=== PATIENT | female | born 1950 | race Caucasian/White ===

== ENCOUNTER 2017-09-21 20:51 | Emergency (ER) | payer MEDICARE ==
[~2017-09-21] VITALS: Ht 160 cm; Wt 87.5 kg
[~2017-09-21 20:51] MED LIST: CYCL-1 PO; IBUP-1985 PO; IBUP-1986 PO; adenosine 3mg/ml 2ml vial IV ONE
[2017-09-21] MEDS ORDERED: diltiazem-NS 100mg/100ml 100 ML IV SCH (21:10)
[2017-09-21 21:14] LABS: BASOPHILS % (AUTO) 0.3 % (0-1); EOSINOPHILS # (AUTO) 0.3 X10'3 (0-0.9); EOSINOPHILS % (AUTO) 2.2 % (0-6); HEMATOCRIT 45.4 % (35.0-45.0); HEMOGLOBIN 15.3 g/dl (12.0-16.0); LYMPHOCYTES # (AUTO) 4.2 X10'3 (1.1-4.8); LYMPHOCYTES % (AUTO) 35.5 % (21-51); MEAN CORPUSCULAR HEMOGLOBIN 29.9 PG (27.0-31.0); MEAN CORPUSCULAR HGB CONC 33.6 % (33.0-36.5); MEAN CORPUSCULAR VOLUME 89.2 FL (78-98); MEAN PLATELET VOLUME 8.7 FL (7.4-10.4); MONOCYTES % (AUTO) 8.8 % (2-12); NEUTROPHILS # (AUTO) 6.3 X10'3 (1.8-7.7); NEUTROPHILS % (AUTO) 53.2 % (42-75); PLATELET COUNT 271 X10'3 (140-440); RED CELL DISTRIBUTION WIDTH 13.9 % (11.5-14.5); WHITE BLOOD COUNT 11.9 X10'3 (4.5-11.0)
[2017-09-21 21:23] LABS: PARTIAL THROMBOPLASTIN TIME 26 SECONDS (22-32); PROTHROMBIN TIME 10.5 SECONDS (9.0-12.0)
[2017-09-21 21:27] LABS: ANION GAP 13 (8-16); BLOOD UREA NITROGEN 22 MG/DL (7-18); BUN/CREATININE RATIO 21.6 (6.6-38.0); CHLORIDE 105 MMOL/L (99-107); CREATININE 1.02 MG/DL (0.40-0.90); GLUCOSE 143 MG/DL (70-104); POTASSIUM 3.8 MMOL/L (3.5-5.1); SODIUM 144 MMOL/L (135-145); TOTAL CARBON DIOXIDE 25.8 MMOL/L (24-32)
[2017-09-21 21:28] LABS: ALANINE AMINOTRANSFERASE 67 U/L (12-78); ALBUMIN 3.9 G/DL (3.4-5.0); ALBUMIN/GLOBULIN RATIO 1.2 (1.1-1.5); ALKALINE PHOSPHATASE 82 IU/L (46-116); ASPARTATE AMINO TRANSFERASE 61 U/L (10-37); BILIRUBIN,TOTAL 0.4 MG/DL (0.1-1.0); CALCIUM 9.2 MG/DL (8.5-10.1); TOTAL PROTEIN 7.2 G/DL (6.4-8.2); eGFR 54 ML/MIN
[2017-09-21] MEDS ORDERED: adenosine 3mg/ml 2ml vial IV ONE ×2 (21:30)
[2017-09-21] MEDS ORDERED: metoprolol succinate 25mg (24-HOUR) SR. Tablet PO STA (22:49)
[2017-09-21] MEDS ORDERED: METO-395 PO (22:52)
[2017-09-21 23:19] VITALS: BP 115/77
== END 2017-09-21 23:35 | disposition home or self-care (01) ==
LOC: ER 20:52
DX: I47.1 Supraventricular tachycardia (principal); G89.29 Other chronic pain; Z79.899 Other long term (current) drug therapy
CPT/HCPCS: 36415; 71045; 80053; 83880; 84484; 85025; 85610; 85730; 93005; 99291; J0153; J7030; 92960; 99152; 99153; 99285

== ENCOUNTER 2017-10-18 11:16 | Inpatient (IN) | payer MEDICARE ==
[~2017-10-18] VITALS: Ht 160 cm; Wt 93.5 kg
[~2017-10-18 11:16] MED LIST changes: +METO-395 PO; -adenosine 3mg/ml 2ml vial IV ONE
[2017-10-18] MEDS: amiodarone/D5 360MG/200ML BAG 200 ML IV SCH ×2 (12:59→19:56)
[2017-10-18] MEDS ORDERED: magnesium 1gm/100ml D5W IVPB 50 ML IV PRN (13:00)
[2017-10-18] MEDS ORDERED: potassium Cl 40MEQ/NS 500ml 500 ML IV PRN ×2 (13:00)
[2017-10-18] MEDS ORDERED: potassium Cl 20 mEq SR tablet PO PRN ×2 (13:00)
[2017-10-18] MEDS ORDERED: MESSAGE TO NURSING PO ONE ×4 (13:00)
[2017-10-18] MEDS ORDERED: dextrose 50%-water 50ml dispensing syringe IV PRN (13:00)
[2017-10-18] MEDS ORDERED: magnesium Cl slow-release 64mg tablet PO PRN (13:00)
[2017-10-18] MEDS ORDERED: magnesium 4gm in 100ml NS 100 ML IV PRN (13:00)
[2017-10-18] MEDS ORDERED: CITA-279 PO (13:25)
[2017-10-18] MEDS ORDERED: FURO-150 PO (13:26)
[2017-10-18] MEDS ORDERED: MULT1CAP44 PO (13:28)
[2017-10-18] MEDS ORDERED: POTA-82 PO (13:28)
[2017-10-18] MEDS ORDERED: ALPRAZolam 0.5mg tablet PO PRN (13:30)
[2017-10-18] MEDS ORDERED: LORazepam 0.5 MG tablet PO PRN (13:30)
[2017-10-18] MEDS ORDERED: acetaminophen 325mg tablet PO PRN ×2 (13:30)
[2017-10-18] MEDS ORDERED: nitroGLYCERIN 0.4mg SUBLingual tab SL PRN (13:30)
[2017-10-18] MEDS ORDERED: HYDROcodone/acetaminophen 5mg/325mg tablet PO PRN (13:30)
[2017-10-18] MEDS ORDERED: ondansetron/PF 4mg/2ml inj IV PRN (13:30)
[2017-10-18] MEDS ORDERED: HYDROcodone/acetaminophen 10/325mg tab PO PRN (13:30)
[2017-10-18] MEDS ORDERED: mag hydrox/Alum hydrox/simeth 30ml oral suspension PO PRN (13:30)
[2017-10-18] MEDS ORDERED: HYDROmorphone 1 mg/ml syringe IV PRN (13:30)
[2017-10-18 14:40] VITALS: BP 140/72
[2017-10-18 14:42] LABS: HEMOGLOBIN 12.9 g/dl (12.0-16.0); MEAN CORPUSCULAR HEMOGLOBIN 30.3 PG (27.0-31.0); MEAN CORPUSCULAR HGB CONC 33.8 % (33.0-36.5); MEAN CORPUSCULAR VOLUME 89.7 FL (78-98); MEAN PLATELET VOLUME 9.1 FL (7.4-10.4); PLATELET COUNT 179 X10'3 (140-440); RED BLOOD COUNT 4.24 X10'6 (4.20-5.60); RED CELL DISTRIBUTION WIDTH 13.2 % (11.5-14.5); WHITE BLOOD COUNT 7.9 X10'3 (4.5-11.0)
[2017-10-18 14:51] LABS: ANION GAP 7 (8-16); BLOOD UREA NITROGEN 13 MG/DL (7-18); BUN/CREATININE RATIO 14.1 (6.6-38.0); CALCIUM 8.8 MG/DL (8.5-10.1); CHLORIDE 104 MMOL/L (99-107); CREATININE 0.92 MG/DL (0.40-0.90); GLUCOSE 150 MG/DL (70-104); HEMOGLOBIN A1C 5.8 % (4.5-6.2); POTASSIUM 4.3 MMOL/L (3.5-5.1); SODIUM 140 MMOL/L (135-145); TOTAL CARBON DIOXIDE 29.5 MMOL/L (24-32); eGFR 61 ML/MIN
[2017-10-18 14:52] LABS: PARTIAL THROMBOPLASTIN TIME 28 SECONDS (22-32); PROTHROMBIN TIME 10.5 SECONDS (9.0-12.0)
[2017-10-18 15:00] VITALS: BP 154/74
[2017-10-18 17:56] LABS: ABG BASE EXCESS 0.4 mmol/L (-2.0-3.0); ABG HCO3 22.3 mmol/L (22.0-26.0); ABG OXYGEN SATURATION 97.5 % (95-98); ABG PCO2 (T) 28.1 mmHg (32.0-45.0); ABG PH (T) 7.517 (7.350-7.450); ALLEN'S TEST Positive; FCOHb 0.4 % (0.5-1.5); FO2Hb 97.1 % (94-100); TOTAL HEMOGLOBIN 12.7 G/dl (12.0-16.0)
[2017-10-18 19:00] VITALS: BP 147/80
[2017-10-18] MEDS: famotidine 20mg tablet PO SCH (19:54)
[2017-10-18] MEDS: docusate sod 100mg capsule PO SCH (19:54)
[2017-10-18] MEDS: mupirocin 2% nasal ointment 1gm UD NS SCH (20:00)
[2017-10-18] MEDS ORDERED: ringers solution, lacted 1,000 ML IV ONE (20:46)
[2017-10-18] MEDS ORDERED: polyethylene glycol 3350 17gm powd pack PO SCH (21:00)
[2017-10-18] MEDS: piperacillin/tazo 3.375gm/50ml 50 ML IV SCH (22:54)
[2017-10-18 23:00] VITALS: BP 155/64
[2017-10-18] MEDS: vancomycin/NS 1 GM ADD-VANTAGE 250 ML IV SCH (23:52)
[2017-10-19] VITALS (14 sets, daily range): BP systolic 112–142; BP diastolic 45–71
[2017-10-19] MEDS: amiodarone/D5 360MG/200ML BAG 200 ML IV SCH ×4 (01:07→17:12)
[2017-10-19] MEDS ORDERED: cefazolin/dext.iso 2gm/50ml 50 ML IV ONE (05:00)
[2017-10-19] MEDS: insulin regular, human inj. 100 UNITS in normal saline 100ml IV soln 100 ML IV SCH ×6 (05:00→21:08)
[2017-10-19] MEDS ORDERED: vancomycin/NS 1 GM ADD-VANTAGE 250 ML IV ONE (05:00)
[2017-10-19] MEDS ORDERED: famotidine 20mg tablet PO ONE (06:00)
[2017-10-19] MEDS ORDERED: LORazepam 2 mg/ml vial IV ONE (06:00)
[2017-10-19 06:01] LABS: BASOPHILS # (AUTO) 0.1 X10'3 (0-0.2); EOSINOPHILS # (AUTO) 0.2 X10'3 (0-0.9); EOSINOPHILS % (AUTO) 3.5 % (0-6); HEMATOCRIT 35.9 % (35.0-45.0); HEMOGLOBIN 12.1 g/dl (12.0-16.0); LYMPHOCYTES # (AUTO) 1.2 X10'3 (1.1-4.8); LYMPHOCYTES % (AUTO) 21.3 % (21-51); MEAN CORPUSCULAR HEMOGLOBIN 30.1 PG (27.0-31.0); MEAN CORPUSCULAR HGB CONC 33.8 % (33.0-36.5); MEAN CORPUSCULAR VOLUME 89.2 FL (78-98); MEAN PLATELET VOLUME 9.3 FL (7.4-10.4); MONOCYTES # (AUTO) 0.6 X10'3 (0-0.9); MONOCYTES % (AUTO) 11.2 % (2-12); NEUTROPHILS # (AUTO) 3.6 X10'3 (1.8-7.7); PLATELET COUNT 181 X10'3 (140-440); RED BLOOD COUNT 4.03 X10'6 (4.20-5.60); RED CELL DISTRIBUTION WIDTH 13.8 % (11.5-14.5); WHITE BLOOD COUNT 5.7 X10'3 (4.5-11.0)
[2017-10-19 06:50] LABS: ALANINE AMINOTRANSFERASE 80 U/L (12-78); ALBUMIN 2.8 G/DL (3.4-5.0); ALBUMIN/GLOBULIN RATIO 0.9 (1.1-1.5); ALKALINE PHOSPHATASE 50 IU/L (46-116); ANION GAP 11 (8-16); ASPARTATE AMINO TRANSFERASE 47 U/L (10-37); BILIRUBIN,TOTAL 0.5 MG/DL (0.1-1.0); BLOOD UREA NITROGEN 10 MG/DL (7-18); BUN/CREATININE RATIO 11.2 (6.6-38.0); CALCIUM 8.3 MG/DL (8.5-10.1); CHLORIDE 106 MMOL/L (99-107); CREATININE 0.89 MG/DL (0.40-0.90); GLUCOSE 104 MG/DL (70-104); MAGNESIUM 1.9 MG/DL (1.5-2.4); SODIUM 142 MMOL/L (135-145); TOTAL CARBON DIOXIDE 25.5 MMOL/L (24-32); eGFR 64 ML/MIN
[2017-10-19 06:54] LABS: POTASSIUM 3.7 MMOL/L (3.5-5.1)
[2017-10-19] MEDS: piperacillin/tazo 3.375gm/50ml 50 ML IV SCH ×2 (08:00→09:22)
[2017-10-19] MEDS ORDERED: phenylephrine 10mg/ml inj. ONE (08:00)
[2017-10-19] MEDS ORDERED: heparin 10,000 units/1 ML INJ ONE (08:00)
[2017-10-19] MEDS ORDERED: calcium chloride 100 MG/1 ML inj IV ONE (08:00)
[2017-10-19] MEDS: vancomycin/NS 1 GM ADD-VANTAGE 250 ML IV SCH ×2 (08:00→20:11)
[2017-10-19] MEDS ORDERED: K and/or MAG REPLACEMENT MC SCH (08:00)
[2017-10-19] MEDS ORDERED: lisinopril 5mg tablet PO SCH (08:00)
[2017-10-19] MEDS ORDERED: sodium bicarbonate (8.4%) 1 mEq/ml syringe ONE (08:00)
[2017-10-19] MEDS ORDERED: heparin 1,000 units/ml 10ml inj ONE (08:00)
[2017-10-19] MEDS ORDERED: LIDOcaine 2% (20 mg/ml) 5ml cardiac syringe ONE (08:00)
[2017-10-19] MEDS ORDERED: lactobacillus rhamnosus 10,000 MMU CELLS/CAPSULE PO SCH (08:00)
[2017-10-19] MEDS ORDERED: albumin (human) 25% 100 ML IV solution IV ONE (08:00)
[2017-10-19] MEDS ORDERED: MAGNESIUM SULFATE 4 MEQ/ML (1gm/2ml) injection ONE (08:00)
[2017-10-19] MEDS ORDERED: aspirin 81mg tab.chew PO SCH (08:30)
[2017-10-19] MEDS: mupirocin 2% nasal ointment 1gm UD NS SCH (08:39)
[2017-10-19] MEDS ORDERED: albuterol 2.5 MG/3 ML nebule NEB ONE (08:40)
[2017-10-19] MEDS: CITALOpram 10mg tablet PO SCH (08:40)
[2017-10-19] MEDS: multivitamins, therapeutics tablet PO SCH (08:40)
[2017-10-19] MEDS: docusate sod 100mg capsule PO SCH ×2 (08:40→20:00)
[2017-10-19] MEDS ORDERED: albuterol 2.5 MG/3 ML nebule ONE (08:43)
[2017-10-19] MEDS ORDERED: vancomycin inj 1,250 MG in normal saline 250ml IV soln 250 ML IV SCH (09:00)
[2017-10-19] MEDS ORDERED: insulin Lispro (HumaLOG) vial - multi-dose SQ SCH (09:00)
[2017-10-19] MEDS ORDERED: MESSAGE TO NURSING PO ONE (10:00)
[2017-10-19] MEDS ORDERED: MAGN400C PO (10:16)
[2017-10-19] MEDS: famotidine 20mg tablet PO SCH (11:56)
[2017-10-19] MEDS ORDERED: INSULIN R 100 UNIT in NS 100ML (1 UNIT/1 ML) BAG IV ONE (12:11)
[2017-10-19] MEDS ORDERED: protamine sulf. 10mg/ml inj. IV ONE (12:11)
[2017-10-19] MEDS ORDERED: amiodarone in dextrose, iso-osm 150mg/100ml bag IV ONE (12:11)
[2017-10-19] MEDS ORDERED: ePHEDrine 50MG/ML INJ. ONE (12:11)
[2017-10-19] MEDS ORDERED: sevoflurane 250ml liquid IH ONE (12:11)
[2017-10-19] MEDS ORDERED: MIDAZolam 1mg/ml 10ml vial ONE (12:12)
[2017-10-19] MEDS ORDERED: SUFENTANIL CITRATE 50 MCG/ML 2ml ampule IV ONE (12:12)
[2017-10-19] MEDS ORDERED: propofol inj 20 ML IV ONE (12:14)
[2017-10-19] MEDS ORDERED: rocuronium 10mg/ml inj IV ONE ×2 (12:19)
[2017-10-19 13:26] LABS: ABG BASE EXCESS 0.2 mmol/L (-2.0-3.0); ABG HCO3 24.6 mmol/L (22.0-26.0); ABG OXYGEN SATURATION 90.4 % (95-98); ABG PH (T) 7.418 (7.350-7.450); ABG PO2 (T) 57.6 mmHg (83-108); FCOHb 0.4 % (0.5-1.5); FMetHb 0.2 % (0.3-1.12); FO2Hb 89.9 % (94-100); TOTAL HEMOGLOBIN 11.2 G/dl (12.0-16.0)
[2017-10-19 13:55] LABS: ABG HCO3 VENOUS 22.7 mmol/L; ABG PCO2 VENOUS 42.9 mmHg; ABG PO2 VENOUS 45.9 mmHg; CL (ABG) 104 mmol/L (99-107); FCOHb VENOUS 0.2 %; FHHb VENOUS 21.3 %; FMetHb VENOUS 0.3 %; FO2Hb VENOUS 78.2 %; GLUCOSE (ABG) 97 mg/dl (70-105); K (ABG) 3.7 mmol/L (3.3-5.1); NA (ABG) 121 mmol/L (135-145); TOTAL HEMOGLOBIN 11.1 G/dl (12.0-16.0)
[2017-10-19 14:20] LABS: ACT @ 1.70 U 250 SEC (193-297); ACT @ 2.84 U 336 SEC (260-420); BASELINE ACT 149 SEC (101-148); PATIENT WEIGHT 88.0k KG
[2017-10-19 14:20] LABS: ABG BASE EXCESS 1.6 mmol/L (-2.0-3.0); ABG HCO3 24.1 mmol/L (22.0-26.0); ABG OXYGEN SATURATION 99.2 % (95-98); ABG PCO2 (T) 29.9 mmHg (32.0-45.0); ABG PH (T) 7.525 (7.350-7.450); ABG PO2 (T) 374.2 mmHg (83-108); FCOHb 0.3 % (0.5-1.5); FMetHb 0.2 % (0.3-1.12); FO2Hb 98.7 % (94-100); TOTAL HEMOGLOBIN 8.5 G/dl (12.0-16.0)
[2017-10-19 14:46] LABS: ABG PCO2 32.9 mmHg (35.0-45.0); ABG PH 7.499 (7.350-7.450); CL (ABG) 107 mmol/L (99-107); FCOHb 0.3 % (0.5-1.5); FMetHb 0.4 % (0.3-1.12); FO2Hb 98.3 % (94-100); GLUCOSE (ABG) 103 mg/dl (70-105); K (ABG) 5.3 mmol/L (3.3-5.1); NA (ABG) 130 mmol/L (135-145); TOTAL HEMOGLOBIN 9.1 G/dl (12.0-16.0)
[2017-10-19 14:50] LABS: ABG PO2 72.2 mmHg (60.0-100.0); CL (ABG) 74 mmol/L (99-107); FCOHb 0.3 % (0.5-1.5); FMetHb 0.4 % (0.3-1.12); FO2Hb 72.5 % (94-100); GLUCOSE (ABG) 440 mg/dl (70-105); TOTAL HEMOGLOBIN 10.5 G/dl (12.0-16.0)
[2017-10-19 15:01] LABS: ABG PH < 6.670 (7.350-7.450)
[2017-10-19 15:02] LABS: ABG PCO2 149.7 mmHg (35.0-45.0); K (ABG) 2.8 mmol/L (3.3-5.1)
[2017-10-19 15:11] LABS: ABG BASE EXCESS 0.1 mmol/L (-2.0-3.0); ABG HCO3 23.7 mmol/L (22.0-26.0); ABG PCO2 34.1 mmHg (35.0-45.0); ABG PH 7.459 (7.350-7.450); ABG PO2 358.7 mmHg (60.0-100.0); CL (ABG) 107 mmol/L (99-107); FCOHb 0.3 % (0.5-1.5); FMetHb 0.8 % (0.3-1.12); FO2Hb 97.9 % (94-100); GLUCOSE (ABG) 101 mg/dl (70-105); IONIZED CA (ABG) 1.01 mmol/L (1.03-1.32); K (ABG) 4.6 mmol/L (3.3-5.1); NA (ABG) 128 mmol/L (135-145)
[2017-10-19 15:35] LABS: ABG BASE EXCESS 1.2 mmol/L (-2.0-3.0); ABG HCO3 25.4 mmol/L (22.0-26.0); ABG OXYGEN SATURATION 99.1 % (95-98); ABG PCO2 38.6 mmHg (35.0-45.0); ABG PH 7.436 (7.350-7.450); ABG PO2 389.7 mmHg (60.0-100.0); CL (ABG) 108 mmol/L (99-107); FCOHb 0.1 % (0.5-1.5); FMetHb 0.9 % (0.3-1.12); FO2Hb 98.1 % (94-100); GLUCOSE (ABG) 124 mg/dl (70-105); IONIZED CA (ABG) 0.99 mmol/L (1.03-1.32); K (ABG) 4.6 mmol/L (3.3-5.1); NA (ABG) 130 mmol/L (135-145); TOTAL HEMOGLOBIN 8.6 G/dl (12.0-16.0)
[2017-10-19 16:10] LABS: ABG BASE EXCESS 4.3 mmol/L (-2.0-3.0); ABG HCO3 28.3 mmol/L (22.0-26.0); ABG PCO2 39.6 mmHg (35.0-45.0); ABG PH 7.472 (7.350-7.450); ABG PO2 372.1 mmHg (60.0-100.0); CL (ABG) 105 mmol/L (99-107); FCOHb 0.2 % (0.5-1.5); FMetHb 0.9 % (0.3-1.12); FO2Hb 97.9 % (94-100); GLUCOSE (ABG) 137 mg/dl (70-105); IONIZED CA (ABG) 1.34 mmol/L (1.03-1.32); K (ABG) 4.4 mmol/L (3.3-5.1); NA (ABG) 132 mmol/L (135-145); TOTAL HEMOGLOBIN 7.9 G/dl (12.0-16.0)
[2017-10-19 16:31] LABS: ABG HCO3 VENOUS 28.1 mmol/L; ABG PCO2 VENOUS 45.3 mmHg; ABG PO2 VENOUS 35.1 mmHg; CL (ABG) 106 mmol/L (99-107); FCOHb VENOUS 0.4 %; FHHb VENOUS 31.6 %; FMetHb VENOUS 0.9 %; FO2Hb VENOUS 67.1 %; GLUCOSE (ABG) 142 mg/dl (70-105); IONIZED CA (ABG) 1.18 mmol/L (1.03-1.32); K (ABG) 4.2 mmol/L (3.3-5.1); NA (ABG) 133 mmol/L (135-145); TOTAL HEMOGLOBIN 8.7 G/dl (12.0-16.0)
[2017-10-19] MEDS ORDERED: sodium phosphate inj. 15 MMOL in dextrose 5%-water 150 ML IV PRN (17:20)
[2017-10-19] MEDS ORDERED: magnesium 4gm in 100ml NS 100 ML IV PRN (17:20)
[2017-10-19] MEDS ORDERED: Neutra Phos packet PO PRN (17:20)
[2017-10-19] MEDS ORDERED: epiNEPHrine inj 5 MG, calcium chloride inj. 1,000 MG in normal saline 250ml IV soln 250 ML IV SCH (17:20)
[2017-10-19] MEDS ORDERED: magnesium 1gm/100ml D5W IVPB 100 ML IV PRN (17:20)
[2017-10-19] MEDS ORDERED: potassium Cl 20mEq/100mL bag 100 ML IV PRN ×3 (17:20)
[2017-10-19] MEDS ORDERED: nitroGLYCERIN-Tridil 50MG/D5W 250 ML IV PRN (17:20)
[2017-10-19] MEDS ORDERED: morphine 4 MG/ML inj SYRINge IV PRN (17:20)
[2017-10-19] MEDS ORDERED: metoclopramide 5 mg/ml inj IV PRN (17:20)
[2017-10-19] MEDS ORDERED: acetaminophen 325mg tablet PO PRN (17:20)
[2017-10-19] MEDS ORDERED: insulin regular, human inj. 100 UNITS in normal saline 100ml IV soln 100 ML IV SCH ×2 (17:20)
[2017-10-19] MEDS ORDERED: dextrose 50%-water 50ml dispensing syringe IV PRN (17:20)
[2017-10-19] MEDS ORDERED: normal saline 250ml IV soln 250 ML IV PRN (17:20)
[2017-10-19] MEDS ORDERED: sodium phosphate inj. 30 MMOL in dextrose 5%-water 250 ML IV PRN (17:20)
[2017-10-19] MEDS ORDERED: niCARDipine/sod cl 20mg/200ml 200 ML IV PRN (17:20)
[2017-10-19] MEDS ORDERED: DOPamine 400mg/D5W 250ml 250 ML IV PRN (17:20)
[2017-10-19 17:56] LABS: ABG BASE EXCESS -0.3 mmol/L (-2.0-3.0); ABG HCO3 23.8 mmol/L (22.0-26.0); ABG OXYGEN SATURATION 94.5 % (95-98); ABG PCO2 (T) 36.9 mmHg (32.0-45.0); ABG PH (T) 7.427 (7.350-7.450); ABG PO2 (T) 74.5 mmHg (83-108); FCOHb 0.3 % (0.5-1.5); FMetHb 0.4 % (0.3-1.12); FO2Hb 93.8 % (94-100); MINUTE VOLUME 9 L/min; PEEP 5 cm H2O; RESPIRATORY RATE 16 b/min; RESPIRATORY RATE (OBSERVED) 16 b/min; TIDAL VOLUME 500 mL; TOTAL HEMOGLOBIN 12.3 G/dl (12.0-16.0)
[2017-10-19 18:00] LABS: BASOPHILS % (AUTO) 0.2 % (0-1); EOSINOPHILS # (AUTO) 0.2 X10'3 (0-0.9); EOSINOPHILS % (AUTO) 1.3 % (0-6); HEMATOCRIT 34.3 % (35.0-45.0); HEMOGLOBIN 11.6 g/dl (12.0-16.0); LYMPHOCYTES # (AUTO) 1.8 X10'3 (1.1-4.8); LYMPHOCYTES % (AUTO) 10.3 % (21-51); MEAN CORPUSCULAR HEMOGLOBIN 30.5 PG (27.0-31.0); MEAN CORPUSCULAR HGB CONC 33.9 % (33.0-36.5); MEAN CORPUSCULAR VOLUME 89.8 FL (78-98); MEAN PLATELET VOLUME 8.9 FL (7.4-10.4); MONOCYTES # (AUTO) 0.8 X10'3 (0-0.9); MONOCYTES % (AUTO) 4.6 % (2-12); NEUTROPHILS # (AUTO) 14.7 X10'3 (1.8-7.7); NEUTROPHILS % (AUTO) 83.6 % (42-75); PLATELET COUNT 129 X10'3 (140-440); RED BLOOD COUNT 3.82 X10'6 (4.20-5.60); RED CELL DISTRIBUTION WIDTH 13.6 % (11.5-14.5); WHITE BLOOD COUNT 17.6 X10'3 (4.5-11.0)
[2017-10-19] MEDS: albumin (Human) 5% 250ml 250 ML IV PRN ×2 (18:00→19:35)
[2017-10-19 18:35] LABS: INR 1.1 INR; PARTIAL THROMBOPLASTIN TIME 27 SECONDS (22-32); PROTHROMBIN TIME 11.6 SECONDS (9.0-12.0)
[2017-10-19] MEDS: morphine 4 MG/ML inj SYRINge IV PRN ×5 (18:35→23:53)
[2017-10-19 18:40] LABS: ALANINE AMINOTRANSFERASE 53 U/L (12-78); ALBUMIN 2.8 G/DL (3.4-5.0); ALBUMIN/GLOBULIN RATIO 1.3 (1.1-1.5); ALKALINE PHOSPHATASE 31 IU/L (46-116); ANION GAP 11 (8-16); BILIRUBIN,TOTAL 0.8 MG/DL (0.1-1.0); BLOOD UREA NITROGEN 9 MG/DL (7-18); BUN/CREATININE RATIO 10.1 (6.6-38.0); CALCIUM 9.3 MG/DL (8.5-10.1); CHLORIDE 108 MMOL/L (99-107); CREATININE 0.89 MG/DL (0.40-0.90); GLUCOSE 169 MG/DL (70-104); MAGNESIUM 2.9 MG/DL (1.5-2.4); SODIUM 143 MMOL/L (135-145); TOTAL CARBON DIOXIDE 23.8 MMOL/L (24-32); TOTAL PROTEIN 4.9 G/DL (6.4-8.2); eGFR 64 ML/MIN
[2017-10-19 18:45] LABS: ASPARTATE AMINO TRANSFERASE 80 U/L (10-37); PHOSPHORUS 4.9 MG/DL (2.3-4.5); POTASSIUM 3.4 MMOL/L (3.5-5.1)
[2017-10-19] MEDS: insulin Lispro (HumaLOG) vial - multi-dose SQ SCH (19:00)
[2017-10-19] MEDS: sodium chloride 0.45% 1,000 ML IV SCH (20:06)
[2017-10-19] MEDS: mupirocin 2% ointment 22GM NS SCH (20:13)
[2017-10-19 23:41] LABS: ABG BASE EXCESS -2.8 mmol/L (-2.0-3.0); ABG HCO3 21.1 mmol/L (22.0-26.0); ABG OXYGEN SATURATION 92.6 % (95-98); ABG PCO2 (T) 33.2 mmHg (32.0-45.0); ABG PH (T) 7.421 (7.350-7.450); ABG PO2 (T) 62.7 mmHg (83-108); FCOHb 0.3 % (0.5-1.5); FMetHb 0.2 % (0.3-1.12); FO2Hb 92.1 % (94-100); MINUTE VOLUME 7 L/min; PATIENT TEMPERATURE 36.9; PEEP 5 cm H2O; RESPIRATORY RATE (OBSERVED) 13 b/min; TOTAL HEMOGLOBIN 10.2 G/dl (12.0-16.0)
[2017-10-19] MEDS: ceFAZolin 1GM/D5W- ADD-VANTAGE 50 ML IV SCH (23:53)
[2017-10-19] MEDS ORDERED: albuterol 2.5 MG/3 ML nebule NEB PRN (23:55)
[2017-10-20] VITALS (23 sets, daily range): BP systolic 86–141; BP diastolic 40–71
[2017-10-20] MEDS: amiodarone/D5 360MG/200ML BAG 200 ML IV SCH ×4 (01:23→19:35)
[2017-10-20] MEDS: HYDROcodone/acetaminophen 10/325mg tab PO PRN ×5 (01:52→21:29)
[2017-10-20] MEDS: morphine 4 MG/ML inj SYRINge IV PRN (03:07)
[2017-10-20 03:17] LABS: BASOPHILS % (AUTO) 0.2 % (0-1); EOSINOPHILS % (AUTO) 0 % (0-6); HEMATOCRIT 28.3 % (35.0-45.0); HEMOGLOBIN 9.6 g/dl (12.0-16.0); LYMPHOCYTES # (AUTO) 0.4 X10'3 (1.1-4.8); LYMPHOCYTES % (AUTO) 3.9 % (21-51); MEAN CORPUSCULAR HEMOGLOBIN 30.3 PG (27.0-31.0); MEAN CORPUSCULAR VOLUME 89.2 FL (78-98); MEAN PLATELET VOLUME 9.6 FL (7.4-10.4); MONOCYTES # (AUTO) 0.6 X10'3 (0-0.9); MONOCYTES % (AUTO) 5.5 % (2-12); NEUTROPHILS # (AUTO) 9.6 X10'3 (1.8-7.7); NEUTROPHILS % (AUTO) 90.4 % (42-75); PLATELET COUNT 104 X10'3 (140-440); RED BLOOD COUNT 3.18 X10'6 (4.20-5.60); RED CELL DISTRIBUTION WIDTH 13.7 % (11.5-14.5); WHITE BLOOD COUNT 10.6 X10'3 (4.5-11.0)
[2017-10-20 03:55] LABS: ALANINE AMINOTRANSFERASE 53 U/L (12-78); ALBUMIN 3.2 G/DL (3.4-5.0); ALBUMIN/GLOBULIN RATIO 1.4 (1.1-1.5); ALKALINE PHOSPHATASE 35 IU/L (46-116); ANION GAP 10 (8-16); ASPARTATE AMINO TRANSFERASE 103 U/L (10-37); BILIRUBIN,TOTAL 0.5 MG/DL (0.1-1.0); BLOOD UREA NITROGEN 12 MG/DL (7-18); BUN/CREATININE RATIO 12.6 (6.6-38.0); CALCIUM 8.8 MG/DL (8.5-10.1); CHLORIDE 110 MMOL/L (99-107); CREATININE 0.95 MG/DL (0.40-0.90); GLUCOSE 143 MG/DL (70-104); MAGNESIUM 2.1 MG/DL (1.5-2.4); PHOSPHORUS 4.9 MG/DL (2.3-4.5); POTASSIUM 4.3 MMOL/L (3.5-5.1); SODIUM 145 MMOL/L (135-145); TOTAL CARBON DIOXIDE 24.9 MMOL/L (24-32); TOTAL PROTEIN 5.5 G/DL (6.4-8.2); eGFR 59 ML/MIN
[2017-10-20 04:09] LABS: PARTIAL THROMBOPLASTIN TIME 26 SECONDS (22-32); PROTHROMBIN TIME 10.7 SECONDS (9.0-12.0)
[2017-10-20 05:16] LABS: ACTIVATED CLOTTING TIME 105 SEC (101-148)
[2017-10-20] MEDS: ondansetron/PF 4mg/2ml inj IV PRN ×2 (05:56→22:40)
[2017-10-20] MEDS: albumin (Human) 5% 250ml 250 ML IV PRN ×2 (07:44→12:01)
[2017-10-20] MEDS: metoprolol tartrate 12.5mg (1/2 tablet) PO SCH ×2 (07:51→19:43)
[2017-10-20] MEDS ORDERED: aspirin 325mg tablet, delayed-release (Ecotrin) PO SCH (08:00)
[2017-10-20] MEDS ORDERED: ketorolac tromethamine 15mg/ml inj. IM SCH (08:00)
[2017-10-20] MEDS: atorvastatin 10mg tablet PO SCH (08:39)
[2017-10-20] MEDS: multivitamins, therapeutics tablet PO SCH (08:39)
[2017-10-20] MEDS: docusate sod 100mg capsule PO SCH ×2 (08:39→19:51)
[2017-10-20] MEDS: vancomycin/NS 1 GM ADD-VANTAGE 250 ML IV SCH ×2 (08:40→19:51)
[2017-10-20] MEDS: CITALOpram 10mg tablet PO SCH (08:40)
[2017-10-20] MEDS: mupirocin 2% ointment 22GM NS SCH ×2 (08:40→19:52)
[2017-10-20] MEDS: ceFAZolin 1GM/D5W- ADD-VANTAGE 50 ML IV SCH ×2 (08:40→16:46)
[2017-10-20] MEDS: insulin Lispro (HumaLOG) vial - multi-dose SQ SCH ×3 (08:48→18:00)
[2017-10-20] MEDS: pantoprazole 40mg Tablet.DR PO SCH (08:50)
[2017-10-20] MEDS ORDERED: NORepinephrine 8mg/ 250ml NS 250 ML IV SCH (09:10)
[2017-10-20] MEDS ORDERED: ketorolac tromethamine 15mg/ml inj. IM PRN (13:40)
[2017-10-20] MEDS: ketorolac tromethamine 15mg/ml inj. IV PRN (15:29)
[2017-10-20] MEDS ORDERED: furosemide 40mg/4ml inj IV ONE (16:35)
[2017-10-20] MEDS ORDERED: VANCOMYCIN LEVEL IV NR (20:30)
[2017-10-21] VITALS (23 sets, daily range): BP systolic 97–135; BP diastolic 43–88
[2017-10-21] MEDS: ceFAZolin 1GM/D5W- ADD-VANTAGE 50 ML IV SCH ×2 (00:36→08:09)
[2017-10-21] MEDS: amiodarone/D5 360MG/200ML BAG 200 ML IV SCH (01:39)
[2017-10-21] MEDS: ketorolac tromethamine 15mg/ml inj. IV PRN (02:16)
[2017-10-21] MEDS: HYDROcodone/acetaminophen 10/325mg tab PO PRN ×3 (02:57→19:22)
[2017-10-21 03:02] LABS: BASOPHILS % (AUTO) 0 % (0-1); EOSINOPHILS % (AUTO) 0 % (0-6); HEMATOCRIT 24.3 % (35.0-45.0); HEMOGLOBIN 8.2 g/dl (12.0-16.0); LYMPHOCYTES # (AUTO) 0.8 X10'3 (1.1-4.8); LYMPHOCYTES % (AUTO) 5.1 % (21-51); MEAN CORPUSCULAR HEMOGLOBIN 30.2 PG (27.0-31.0); MEAN CORPUSCULAR HGB CONC 33.8 % (33.0-36.5); MEAN CORPUSCULAR VOLUME 89.6 FL (78-98); MEAN PLATELET VOLUME 9.1 FL (7.4-10.4); MONOCYTES # (AUTO) 1.1 X10'3 (0-0.9); MONOCYTES % (AUTO) 7.3 % (2-12); NEUTROPHILS # (AUTO) 13.5 X10'3 (1.8-7.7); NEUTROPHILS % (AUTO) 87.6 % (42-75); PLATELET COUNT 93 X10'3 (140-440); RED BLOOD COUNT 2.72 X10'6 (4.20-5.60); RED CELL DISTRIBUTION WIDTH 13.7 % (11.5-14.5); WHITE BLOOD COUNT 15.4 X10'3 (4.5-11.0)
[2017-10-21 03:18] LABS: ALBUMIN 3.2 G/DL (3.4-5.0); ANION GAP 8 (8-16); BLOOD UREA NITROGEN 31 MG/DL (7-18); BUN/CREATININE RATIO 14.6 (6.6-38.0); CALCIUM 8.2 MG/DL (8.5-10.1); CHLORIDE 104 MMOL/L (99-107); CREATININE 2.13 MG/DL (0.40-0.90); GLUCOSE 146 MG/DL (70-104); MAGNESIUM 2.4 MG/DL (1.5-2.4); PHOSPHORUS 6.3 MG/DL (2.3-4.5); SODIUM 136 MMOL/L (135-145); TOTAL CARBON DIOXIDE 24.1 MMOL/L (24-32); eGFR 23 ML/MIN
[2017-10-21] MEDS: insulin regular, human inj. 100 UNITS in normal saline 100ml IV soln 100 ML IV SCH ×2 (04:58)
[2017-10-21] MEDS: multivitamins, therapeutics tablet PO SCH (08:08)
[2017-10-21] MEDS: atorvastatin 10mg tablet PO SCH (08:08)
[2017-10-21] MEDS: docusate sod 100mg capsule PO SCH ×2 (08:08→20:27)
[2017-10-21] MEDS: CITALOpram 10mg tablet PO SCH (08:09)
[2017-10-21] MEDS: pantoprazole 40mg Tablet.DR PO SCH (08:09)
[2017-10-21] MEDS: mupirocin 2% ointment 22GM NS SCH (08:09)
[2017-10-21] MEDS: sodium chloride 0.45% 1,000 ML IV SCH (17:44)
[2017-10-22] VITALS (23 sets, daily range): BP systolic 83–146; BP diastolic 50–71
[2017-10-22] MEDS: HYDROcodone/acetaminophen 10/325mg tab PO PRN ×4 (02:19→20:21)
[2017-10-22 02:45] LABS: BASOPHILS % (AUTO) 0 % (0-1); EOSINOPHILS % (AUTO) 0 % (0-6); HEMATOCRIT 24.3 % (35.0-45.0); HEMOGLOBIN 8.4 g/dl (12.0-16.0); LYMPHOCYTES % (AUTO) 6.9 % (21-51); MEAN CORPUSCULAR HEMOGLOBIN 30.8 PG (27.0-31.0); MEAN CORPUSCULAR HGB CONC 34.4 % (33.0-36.5); MEAN CORPUSCULAR VOLUME 89.5 FL (78-98); MEAN PLATELET VOLUME 9.3 FL (7.4-10.4); MONOCYTES # (AUTO) 1.2 X10'3 (0-0.9); NEUTROPHILS # (AUTO) 11.6 X10'3 (1.8-7.7); NEUTROPHILS % (AUTO) 84.1 % (42-75); PLATELET COUNT 100 X10'3 (140-440); RED BLOOD COUNT 2.72 X10'6 (4.20-5.60); RED CELL DISTRIBUTION WIDTH 13.9 % (11.5-14.5); WHITE BLOOD COUNT 13.8 X10'3 (4.5-11.0)
[2017-10-22 03:00] LABS: ALBUMIN 2.9 G/DL (3.4-5.0); ANION GAP 8 (8-16); BLOOD UREA NITROGEN 43 MG/DL (7-18); BUN/CREATININE RATIO 20.4 (6.6-38.0); CALCIUM 8.4 MG/DL (8.5-10.1); CHLORIDE 101 MMOL/L (99-107); CREATININE 2.11 MG/DL (0.40-0.90); GLUCOSE 122 MG/DL (70-104); MAGNESIUM 2.6 MG/DL (1.5-2.4); PHOSPHORUS 5.9 MG/DL (2.3-4.5); POTASSIUM 5.1 MMOL/L (3.5-5.1); SODIUM 134 MMOL/L (135-145); TOTAL CARBON DIOXIDE 25.5 MMOL/L (24-32); eGFR 24 ML/MIN
[2017-10-22] MEDS: insulin regular, human inj. 100 UNITS in normal saline 100ml IV soln 100 ML IV SCH ×2 (05:00)
[2017-10-22] MEDS ORDERED: magnesium citrate 296ml oral solution PO ONE (07:25)
[2017-10-22] MEDS: magnesium hydroxide 30ml (MOM) UD suspension PO PRN (07:47)
[2017-10-22] MEDS: docusate sod 100mg capsule PO SCH ×2 (07:47→20:21)
[2017-10-22] MEDS: multivitamins, therapeutics tablet PO SCH (07:47)
[2017-10-22] MEDS: atorvastatin 10mg tablet PO SCH (07:47)
[2017-10-22] MEDS: pantoprazole 40mg Tablet.DR PO SCH (07:48)
[2017-10-22] MEDS: aspirin 81mg tablet.DR PO SCH (07:48)
[2017-10-22] MEDS: CITALOpram 10mg tablet PO SCH (07:52)
[2017-10-22] MEDS: NUT.TX.GLUC.INTOLER,LAC-FR,REG (BOOST GLUCOSE CONTROL) 237 ML PO SCH ×4 (08:07→19:53)
[2017-10-23] VITALS (24 sets, daily range): BP systolic 91–138; BP diastolic 51–73
[2017-10-23] MEDS: HYDROcodone/acetaminophen 10/325mg tab PO PRN ×6 (02:50→22:15)
[2017-10-23 03:19] LABS: BASOPHILS % (AUTO) 0.4 % (0-1); EOSINOPHILS # (AUTO) 0.1 X10'3 (0-0.9); EOSINOPHILS % (AUTO) 1.3 % (0-6); HEMATOCRIT 25.4 % (35.0-45.0); HEMOGLOBIN 8.5 g/dl (12.0-16.0); LYMPHOCYTES # (AUTO) 1.2 X10'3 (1.1-4.8); LYMPHOCYTES % (AUTO) 11.4 % (21-51); MEAN CORPUSCULAR HEMOGLOBIN 30.3 PG (27.0-31.0); MEAN CORPUSCULAR HGB CONC 33.6 % (33.0-36.5); MEAN CORPUSCULAR VOLUME 90.3 FL (78-98); MEAN PLATELET VOLUME 9.2 FL (7.4-10.4); MONOCYTES # (AUTO) 1.2 X10'3 (0-0.9); MONOCYTES % (AUTO) 10.6 % (2-12); NEUTROPHILS # (AUTO) 8.3 X10'3 (1.8-7.7); NEUTROPHILS % (AUTO) 76.3 % (42-75); PLATELET COUNT 125 X10'3 (140-440); RED BLOOD COUNT 2.81 X10'6 (4.20-5.60); RED CELL DISTRIBUTION WIDTH 13.9 % (11.5-14.5); WHITE BLOOD COUNT 10.9 X10'3 (4.5-11.0)
[2017-10-23 03:40] LABS: ALBUMIN 2.7 G/DL (3.4-5.0); ANION GAP 4 (8-16); BLOOD UREA NITROGEN 44 MG/DL (7-18); BUN/CREATININE RATIO 29.5 (6.6-38.0); CALCIUM 8.2 MG/DL (8.5-10.1); CHLORIDE 106 MMOL/L (99-107); CREATININE 1.49 MG/DL (0.40-0.90); GLUCOSE 104 MG/DL (70-104); MAGNESIUM 2.9 MG/DL (1.5-2.4); PHOSPHORUS 3.9 MG/DL (2.3-4.5); POTASSIUM 5.3 MMOL/L (3.5-5.1); SODIUM 138 MMOL/L (135-145); TOTAL CARBON DIOXIDE 28.2 MMOL/L (24-32); eGFR 35 ML/MIN
[2017-10-23] MEDS: insulin regular, human inj. 100 UNITS in normal saline 100ml IV soln 100 ML IV SCH ×2 (04:12)
[2017-10-23] MEDS: atorvastatin 10mg tablet PO SCH (08:38)
[2017-10-23] MEDS: CITALOpram 10mg tablet PO SCH (08:38)
[2017-10-23] MEDS: multivitamins, therapeutics tablet PO SCH (08:38)
[2017-10-23] MEDS: docusate sod 100mg capsule PO SCH ×2 (08:38→20:00)
[2017-10-23] MEDS: aspirin 81mg tablet.DR PO SCH (08:38)
[2017-10-23] MEDS: pantoprazole 40mg Tablet.DR PO SCH (08:38)
[2017-10-23] MEDS: NUT.TX.GLUC.INTOLER,LAC-FR,REG (BOOST GLUCOSE CONTROL) 237 ML PO SCH ×3 (09:00→18:50)
[2017-10-23] MEDS: magnesium hydroxide 30ml (MOM) UD suspension PO PRN (15:16)
[2017-10-23] MEDS: sodium chloride 0.45% 1,000 ML IV SCH (18:40)
[2017-10-23] MEDS ORDERED: nitroGLYCERIN 0.4mg SUBLingual tab SL ONE (20:25)
[2017-10-23 21:21] LABS: BASOPHILS % (AUTO) 0.1 % (0-1); EOSINOPHILS # (AUTO) 0.2 X10'3 (0-0.9); HEMATOCRIT 26.7 % (35.0-45.0); LYMPHOCYTES # (AUTO) 1.3 X10'3 (1.1-4.8); LYMPHOCYTES % (AUTO) 13.1 % (21-51); MEAN CORPUSCULAR HEMOGLOBIN 30.1 PG (27.0-31.0); MEAN CORPUSCULAR HGB CONC 33.6 % (33.0-36.5); MEAN CORPUSCULAR VOLUME 89.7 FL (78-98); MEAN PLATELET VOLUME 8.6 FL (7.4-10.4); MONOCYTES # (AUTO) 1.2 X10'3 (0-0.9); NEUTROPHILS # (AUTO) 7.1 X10'3 (1.8-7.7); NEUTROPHILS % (AUTO) 72.8 % (42-75); PLATELET COUNT 170 X10'3 (140-440); RED BLOOD COUNT 2.98 X10'6 (4.20-5.60); RED CELL DISTRIBUTION WIDTH 14.3 % (11.5-14.5); WHITE BLOOD COUNT 9.8 X10'3 (4.5-11.0)
[2017-10-23 21:25] LABS: PARTIAL THROMBOPLASTIN TIME 26 SECONDS (22-32); PROTHROMBIN TIME 10.5 SECONDS (9.0-12.0)
[2017-10-23 21:28] LABS: ALANINE AMINOTRANSFERASE 33 U/L (12-78); ALBUMIN 2.7 G/DL (3.4-5.0); ALKALINE PHOSPHATASE 88 IU/L (46-116); ANION GAP 2 (8-16); ASPARTATE AMINO TRANSFERASE 20 U/L (10-37); BILIRUBIN,TOTAL 0.3 MG/DL (0.1-1.0); BLOOD UREA NITROGEN 45 MG/DL (7-18); CALCIUM 8.3 MG/DL (8.5-10.1); CHLORIDE 104 MMOL/L (99-107); GLUCOSE 124 MG/DL (70-104); POTASSIUM 4.7 MMOL/L (3.5-5.1); SODIUM 136 MMOL/L (135-145); TOTAL CARBON DIOXIDE 29.8 MMOL/L (24-32); TOTAL PROTEIN 5.5 G/DL (6.4-8.2); eGFR 35 ML/MIN
[2017-10-23 21:37] LABS: TROPONIN I 2.38 NG/ML (0.0-0.05)
[2017-10-23] MEDS ORDERED: furosemide 40mg/4ml inj IV ONE (22:00)
[2017-10-24] VITALS (23 sets, daily range): BP systolic 93–141; BP diastolic 59–82
[2017-10-24 07:21] LABS: BASOPHILS % (AUTO) 0.2 % (0-1); EOSINOPHILS # (AUTO) 0.2 X10'3 (0-0.9); EOSINOPHILS % (AUTO) 2.3 % (0-6); HEMATOCRIT 29.2 % (35.0-45.0); HEMOGLOBIN 9.9 g/dl (12.0-16.0); LYMPHOCYTES # (AUTO) 1.4 X10'3 (1.1-4.8); LYMPHOCYTES % (AUTO) 13.3 % (21-51); MEAN CORPUSCULAR HEMOGLOBIN 30.2 PG (27.0-31.0); MEAN CORPUSCULAR HGB CONC 33.7 % (33.0-36.5); MEAN CORPUSCULAR VOLUME 89.4 FL (78-98); MEAN PLATELET VOLUME 8.2 FL (7.4-10.4); MONOCYTES # (AUTO) 1.4 X10'3 (0-0.9); MONOCYTES % (AUTO) 13.4 % (2-12); NEUTROPHILS # (AUTO) 7.5 X10'3 (1.8-7.7); NEUTROPHILS % (AUTO) 70.8 % (42-75); PLATELET COUNT 201 X10'3 (140-440); RED BLOOD COUNT 3.27 X10'6 (4.20-5.60); RED CELL DISTRIBUTION WIDTH 13.9 % (11.5-14.5); WHITE BLOOD COUNT 10.5 X10'3 (4.5-11.0)
[2017-10-24 07:44] LABS: ALANINE AMINOTRANSFERASE 29 U/L (12-78); ALBUMIN/GLOBULIN RATIO 0.9 (1.1-1.5); ALKALINE PHOSPHATASE 83 IU/L (46-116); ANION GAP 6 (8-16); ASPARTATE AMINO TRANSFERASE 23 U/L (10-37); BILIRUBIN,TOTAL 0.4 MG/DL (0.1-1.0); BLOOD UREA NITROGEN 43 MG/DL (7-18); BUN/CREATININE RATIO 30.7 (6.6-38.0); CALCIUM 8.8 MG/DL (8.5-10.1); CHLORIDE 102 MMOL/L (99-107); GLUCOSE 107 MG/DL (70-104); MAGNESIUM 2.5 MG/DL (1.5-2.4); PHOSPHORUS 3.3 MG/DL (2.3-4.5); POTASSIUM 4.8 MMOL/L (3.5-5.1); SODIUM 137 MMOL/L (135-145); TOTAL CARBON DIOXIDE 29.4 MMOL/L (24-32); TOTAL PROTEIN 6.2 G/DL (6.4-8.2); eGFR 38 ML/MIN
[2017-10-24] MEDS: CITALOpram 10mg tablet PO SCH (08:51)
[2017-10-24] MEDS: multivitamins, therapeutics tablet PO SCH (08:51)
[2017-10-24] MEDS: atorvastatin 10mg tablet PO SCH (08:51)
[2017-10-24] MEDS: pantoprazole 40mg Tablet.DR PO SCH (08:51)
[2017-10-24] MEDS: docusate sod 100mg capsule PO SCH ×2 (08:51→20:00)
[2017-10-24] MEDS: aspirin 81mg tablet.DR PO SCH (08:51)
[2017-10-24] MEDS: HYDROcodone/acetaminophen 10/325mg tab PO PRN ×2 (08:52→19:05)
[2017-10-24] MEDS: NUT.TX.GLUC.INTOLER,LAC-FR,REG (BOOST GLUCOSE CONTROL) 237 ML PO SCH ×3 (08:55→19:06)
[2017-10-24] MEDS ORDERED: furosemide 40mg/4ml inj IV ONE (09:30)
[2017-10-25] VITALS (9 sets, daily range): BP systolic 100–122; BP diastolic 57–76
[2017-10-25] MEDS: HYDROcodone/acetaminophen 10/325mg tab PO PRN ×3 (00:08→10:15)
[2017-10-25 05:17] LABS: BASOPHILS % (AUTO) 0.3 % (0-1); EOSINOPHILS # (AUTO) 0.2 X10'3 (0-0.9); HEMATOCRIT 26.2 % (35.0-45.0); HEMOGLOBIN 8.9 g/dl (12.0-16.0); LYMPHOCYTES # (AUTO) 1.4 X10'3 (1.1-4.8); LYMPHOCYTES % (AUTO) 13.9 % (21-51); MEAN CORPUSCULAR HEMOGLOBIN 30.5 PG (27.0-31.0); MEAN CORPUSCULAR HGB CONC 34.2 % (33.0-36.5); MEAN CORPUSCULAR VOLUME 89.3 FL (78-98); MEAN PLATELET VOLUME 8.2 FL (7.4-10.4); MONOCYTES # (AUTO) 1.4 X10'3 (0-0.9); MONOCYTES % (AUTO) 14.4 % (2-12); NEUTROPHILS # (AUTO) 6.9 X10'3 (1.8-7.7); NEUTROPHILS % (AUTO) 69.4 % (42-75); PLATELET COUNT 185 X10'3 (140-440); RED BLOOD COUNT 2.93 X10'6 (4.20-5.60); RED CELL DISTRIBUTION WIDTH 13.9 % (11.5-14.5)
[2017-10-25 05:34] LABS: ALANINE AMINOTRANSFERASE 20 U/L (12-78); ALBUMIN 2.5 G/DL (3.4-5.0); ALBUMIN/GLOBULIN RATIO 0.9 (1.1-1.5); ALKALINE PHOSPHATASE 60 IU/L (46-116); ANION GAP 4 (8-16); ASPARTATE AMINO TRANSFERASE 19 U/L (10-37); BILIRUBIN,TOTAL 0.4 MG/DL (0.1-1.0); BLOOD UREA NITROGEN 36 MG/DL (7-18); BUN/CREATININE RATIO 33.6 (6.6-38.0); CALCIUM 7.9 MG/DL (8.5-10.1); CHLORIDE 103 MMOL/L (99-107); CREATININE 1.07 MG/DL (0.40-0.90); GLUCOSE 102 MG/DL (70-104); MAGNESIUM 2.1 MG/DL (1.5-2.4); PHOSPHORUS 3.4 MG/DL (2.3-4.5); POTASSIUM 4.2 MMOL/L (3.5-5.1); SODIUM 136 MMOL/L (135-145); TOTAL CARBON DIOXIDE 28.7 MMOL/L (24-32); TOTAL PROTEIN 5.3 G/DL (6.4-8.2); eGFR 51 ML/MIN
[2017-10-25] MEDS ORDERED: furosemide 20MG tablet PO SCH (08:00)
[2017-10-25] MEDS: aspirin 81mg tablet.DR PO SCH (08:03)
[2017-10-25] MEDS: multivitamins, therapeutics tablet PO SCH (08:04)
[2017-10-25] MEDS: CITALOpram 10mg tablet PO SCH (08:04)
[2017-10-25] MEDS: docusate sod 100mg capsule PO SCH (08:04)
[2017-10-25] MEDS: atorvastatin 10mg tablet PO SCH (08:04)
[2017-10-25] MEDS: pantoprazole 40mg Tablet.DR PO SCH (08:04)
[2017-10-25] MEDS: NUT.TX.GLUC.INTOLER,LAC-FR,REG (BOOST GLUCOSE CONTROL) 237 ML PO SCH (08:49)
[2017-10-25] MEDS ORDERED: ASPI-1071 PO (09:47)
[2017-10-25] MEDS ORDERED: HYDR-3972 PO (09:47)
[2017-10-25] MEDS ORDERED: COL100C PO (09:47)
[2017-10-25] MEDS ORDERED: ATOR10TA PO (09:47)
[2017-11-02] MEDS ORDERED: POTA20TA19 PO (18:20)
[2017-11-02] MEDS ORDERED: FURO-149 PO (18:20)
[2017-11-02] MEDS ORDERED: LISI10TA4 PO (18:20)
== END 2017-10-25 10:57 | disposition home health service (06) | DRG 220 ==
LOC: PCU 3S 12:46 → PACU 10-19 12:10 → ICU 2S 10-19 17:21
PROVIDERS: ADMIT Thoracic Surgery (Cardiothoracic Vascular Surgery); ATTEND Thoracic Surgery (Cardiothoracic Vascular Surgery)
PROC: 02RG08Z Replacement of Mitral Valve with Zooplastic Tissue, Open Approach (ICD-10-PCS; 2017-10-19)
PROC: B24BZZ4 Ultrasonography of Heart with Aorta, Transesophageal (ICD-10-PCS; 2017-10-19)
PROC: 02L70CK Occlusion of Left Atrial Appendage with Extraluminal Device, Open Approach (ICD-10-PCS; 2017-10-19)
PROC: 5A1221Z Performance of Cardiac Output, Continuous (ICD-10-PCS; 2017-10-19)
PROC: 02HV33Z Insertion of Infusion Device into Superior Vena Cava, Percutaneous Approach (ICD-10-PCS; 2017-10-19)
PROC: B548ZZA Ultrasonography of Superior Vena Cava, Guidance (ICD-10-PCS; 2017-10-19)
PROC: 02RF08Z Replacement of Aortic Valve with Zooplastic Tissue, Open Approach (ICD-10-PCS; principal; 2017-10-19 12:11)
DX: I34.2 Nonrheumatic mitral (valve) stenosis (principal); Q23.1 Congenital insufficiency of aortic valve; I47.1 Supraventricular tachycardia; I50.32 Chronic diastolic (congestive) heart failure; N17.9 Acute kidney failure, unspecified; I13.0 Hypertensive heart and chronic kidney disease with heart failure and stage 1 through stage 4 chronic kidney disease, or unspecified chronic kidney disease; N18.9 Chronic kidney disease, unspecified; F39 Unspecified mood [affective] disorder; E66.9 Obesity, unspecified; I27.20 Pulmonary hypertension, unspecified; Z79.899 Other long term (current) drug therapy; Z82.49 Family history of ischemic heart disease and other diseases of the circulatory system; Z80.6 Family history of leukemia; Z83.511 Family history of glaucoma; Z84.1 Family history of disorders of kidney and ureter; Z68.36 Body mass index [BMI] 36.0-36.9, adult
CPT/HCPCS: 0232T; 93312; 93325; 36415; 36600; 71045; 71046; 80048; 80053; 82330; 82435; 82803; 82947; 82948; 83036; 83735; 84100; 84132; 84295; 84484; 85018; 85025; 85027; 85347; 85384; 85610; 85730; 86885; 86900; 86901; 86920; 87070; 88300; 93005; 93880; 93971; 94002; 94060; 94640; 97116; 97162; 97530; A4620; A6213; A6255; A6257; A6258; A6402; A6449; A7000; A7048; C1751; J0171; J0282; J0690; J1644; J1815; J1885; J1940; J2001; J2060; J2150; J2250; J2270; J2370; J2405; J2543; J2704; J2720; J3370; J3480; J7030; J7120; P9045; P9047

== ENCOUNTER 2017-11-10 15:39 | Outpatient (CLI) | payer MEDICARE ==
[~2017-11-10 15:39] MED LIST changes: +ASPI-1071 PO; +ATOR10TA PO; +CITA-279 PO; +COL100C PO; -CYCL-1 PO; +FURO-149 PO; +FURO-150 PO; +HYDR-3972 PO; -IBUP-1985 PO; -IBUP-1986 PO; +LISI10TA4 PO; +MAGN400C PO; -METO-395 PO; +MULT1CAP44 PO; +POTA-82 PO; +POTA20TA19 PO
== END 2017-11-10 23:59 | disposition home or self-care (01) ==
LOC: RAD 15:39
PROVIDERS: ATTEND Thoracic Surgery (Cardiothoracic Vascular Surgery)
DX: J98.11 Atelectasis (principal); J90 Pleural effusion, not elsewhere classified; I51.7 Cardiomegaly
CPT/HCPCS: 71046

== ENCOUNTER 2020-04-15 09:14 | Emergency (ER) | payer MEDICARE ==
[~2020-04-15] VITALS: Ht 160 cm; Wt 100.0 kg
[~2020-04-15 09:14] MED LIST changes: +CITA-157 PO; -CITA-279 PO
[2020-04-15 12:04] LABS: D-DIMER 1.41 MG/L FEU (0-0.50)
[2020-04-15 12:13] LABS: ALANINE AMINOTRANSFERASE 23 U/L (12-78); ALBUMIN 3.8 G/DL (3.4-5.0); ALBUMIN/GLOBULIN RATIO 1.1 (1.1-1.5); ALKALINE PHOSPHATASE 68 IU/L (46-116); ANION GAP 9 (8-16); ASPARTATE AMINO TRANSFERASE 20 U/L (10-37); BILIRUBIN,TOTAL 0.6 MG/DL (0.1-1.0); BLOOD UREA NITROGEN 16 MG/DL (7-18); BUN/CREATININE RATIO 15.1 (6.6-38.0); CALCIUM 9.1 MG/DL (8.5-10.1); CHLORIDE 104 MMOL/L (99-107); CREATININE 1.06 MG/DL (0.40-0.90); GLUCOSE 104 MG/DL (70-104); SODIUM 142 MMOL/L (135-145); TOTAL CARBON DIOXIDE 28.6 MMOL/L (24-32); TOTAL PROTEIN 7.2 G/DL (6.4-8.2); eGFR 52 ML/MIN
[2020-04-15 13:05] LABS: BASOPHILS % (AUTO) 0.6 % (0-1); EOSINOPHILS # (AUTO) 0.1 X10'3 (0-0.9); EOSINOPHILS % (AUTO) 1.6 % (0-6); HEMATOCRIT 41.4 % (35.0-45.0); HEMOGLOBIN 13.8 g/dl (12.0-16.0); LYMPHOCYTES % (AUTO) 18.1 % (21-51); MEAN CORPUSCULAR HEMOGLOBIN 29.9 PG (27.0-31.0); MEAN CORPUSCULAR HGB CONC 33.2 g/dL (33.0-36.5); MEAN PLATELET VOLUME 8.1 FL (7.4-10.4); MONOCYTES # (AUTO) 0.5 X10'3 (0-0.9); MONOCYTES % (AUTO) 8.2 % (2-12); NEUTROPHILS % (AUTO) 71.5 % (42-75); PLATELET COUNT 210 X10'3 (140-440); RED CELL DISTRIBUTION WIDTH 13.8 % (11.5-14.5); WHITE BLOOD COUNT 5.6 X10'3 (4.5-11.0)
[2020-04-15 13:48] VITALS: BP 135/80
== END 2020-04-15 13:49 | disposition home or self-care (01) ==
LOC: ER 09:14
DX: M79.605 Pain in left leg (principal); M79.89 Other specified soft tissue disorders; I35.0 Nonrheumatic aortic (valve) stenosis; I10 Essential (primary) hypertension; G89.29 Other chronic pain; M54.9 Dorsalgia, unspecified; Z79.899 Other long term (current) drug therapy
CPT/HCPCS: 36415; 71045; 80053; 83880; 84484; 85025; 85379; 93005; 93971; 99285

== ENCOUNTER 2022-10-07 10:18 | Day surgery (SDC) | payer MEDICARE ==
[~2022-10-07] VITALS: Ht 160 cm; Wt 103.3 kg
[2022-10-07] VITALS (13 sets, daily range): BP systolic 116–177; BP diastolic 52–89
[~2022-10-07 10:18] MED LIST changes: +LISI10TA27 PO; -LISI10TA4 PO; +POTA-208 PO; +POTA-366 PO; -POTA-82 PO; -POTA20TA19 PO
[2022-10-07] MEDS ORDERED: POTA-207 PO (10:46)
[2022-10-07] MEDS ORDERED: LOSA50TA64 PO (10:46)
[2022-10-07] MEDS ORDERED: FURO20TA4 PO (10:46)
[2022-10-07] MEDS ORDERED: normal saline 1000ml 1,000 ML IV SCH (12:00)
[2022-10-07] MEDS ORDERED: fentaNYL/PF 50MCG/1 ML 2ML syringe IV ONE (12:00)
[2022-10-07] MEDS ORDERED: MIDAZolam 1mg/ml 10ml vial IV ONE (12:00)
== END 2022-10-07 14:10 | disposition home or self-care (01) ==
LOC: SSTAY O 10:18
PROVIDERS: ATTEND Student in an Organized Health Care Education/Training Program
DX: I34.2 Nonrheumatic mitral (valve) stenosis (principal); I10 Essential (primary) hypertension; I47.1 Supraventricular tachycardia; G47.33 Obstructive sleep apnea (adult) (pediatric); F41.9 Anxiety disorder, unspecified; Z95.2 Presence of prosthetic heart valve; Z79.899 Other long term (current) drug therapy
CPT/HCPCS: 93306; 94760; J2250; J3010; J7030; 93312; 93325; A4620